=== PATIENT | male | born 1985 | race Caucasian/White ===

== ENCOUNTER → 2021-05-30 | Outpatient (CLI) | payer OTHER | LOC: EDBD → LAB 11:05 | PROVIDERS: ATTEND Otolaryngology | DX: Z01.818 Encounter for other preprocedural examination (principal); Z20.822 Contact with and (suspected) exposure to COVID-19; J34.2 Deviated nasal septum | CPT/HCPCS: U0003 ==

== ENCOUNTER → 2021-06-02 | Day surgery (SDC) | payer OTHER ==
[~2021-06-02] MED LIST: 0.9 % SODIUM CHLORIDE 10 ML VIAL. IJ ONE; 0.9 % SODIUM CHLORIDE 10 ML VIAL. ONE; ACETAMINOPHEN 325 MG TABLET PO PRN; ALBUTEROL SULFATE 2.5 MG/3 ML NEBU. NEB PRN; ATROPINE 0.5 MG/5 ML DISP.SYRIN. IV PRN; BACTERIOSTATIC SODIUM CHLORIDE 0.9% 30 ML VIAL. IJ ONE; DEXAMETHASONE SOD PHOS 20 MG/5 ML VIAL. ONE; GELATIN SPONGE SIZE 100. TP ONE; GELATIN SPONGE SIZE 12-7MM SPONGE. ONE; GLYCOPYRROLATE 1 MG/5 ML VIAL. ONE; IV RINGERS SOLUTION,LACTATED 1,000 ML IV SCH; KETOROLAC 30 MG/ML VIAL. ONE; LIDOCAINE 1% PF 30 ML VIAL. ONE; LIDOCAINE 1%/EPI 1:100,000 20 ML VIAL. IJ ONE; LIDOCAINE 1%/EPI 1:100,000 20 ML VIAL. ONE; MIDAZOLAM HCL PF 2 MG/2 ML VIAL. IV PRN; MIDAZOLAM HCL PF 2 MG/2 ML VIAL. ONE; NEOSTIGMINE 10 MG/10 ML VIAL. ONE; ONDANSETRON PF 4 MG/2 ML VIAL. IV PRN; ONDANSETRON PF 4 MG/2 ML VIAL. ONE; OXYMETAZOLINE 0.05% NASAL SPRAY 30ML BOTTLE. NS ONE; PHENOL ORAL SPRAY 177ML BOTTLE. MM PRN; PROPOFOL 10,000 MCG/ML (20ML) VIAL IV ONE; ROCURONIUM 50 MG/5 ML VIAL. ONE; SEVOFLURANE 61 TO 120 MINUTES. IH ONE; ceFAZolin SODIUM 2 GM in IV DEXTROSE 5% 50 ML IV ONE; diphenhydrAMINE 50 MG/ML VIAL IV PRN
--- NOTE | 2021-06-02 10:55 | OP ---
DATE OF SURGERY: 06/02/2021 PREOPERATIVE DIAGNOSIS: Deviated nasal septum. POSTOPERATIVE DIAGNOSES: Deviated nasal septum with inferior turbinate hypertrophy. PROCEDURES PERFORMED: Nasal septal reconstruction and radiofrequency reduction of the inferior nasal turbinates. ANESTHESIA: General anesthetic. ESTIMATED BLOOD LOSS: Approximately 15-20 mL. DESCRIPTION OF PROCEDURE: The patient was brought to the operating room and placed on the operating room table in a supine position and was given a general anesthetic. When his airway was intubated and safely in place, the table was then rotated 90 degrees. His nose had been previously decongested with topical application of Afrin was anteriorly examined. There was clearly displacement of the columella into the right side of the nasal passage. The septum was deviated into the left side and there was hypertrophy, particularly of the left inferior turbinate. The nasal mucous membrane and the nasal tissue around the columella was injected with 1% lidocaine with epinephrine, after which cottonoids containing adrenaline were placed in the nose and the face was then prepped and draped after sterile fashion. The cottonoids were then removed from the nose and a Benny incision was made in the midportion of the cartilaginous septum and dissection carried down beneath the mucoperichondrium and periosteum posteriorly elevating the mucous membrane and then a crossover incision was created and the twisted cartilaginous portion into the left side of the nose was isolated and removed. The crossover incision was then slightly expanded which gave mobility to the anterior portion of the nasal septum. Then, beginning at the anterior region of the Rocio and incision, dissection was carried out forward using scissors and the Guille dissector, dissecting forward then freeing up the twisted portion of the columella required some slight excision of cartilage, particularly on the base, which gave it more midline and then along the edge, which removed the prominent portion into a midline position. Careful manic curing of small tissue segments allowed this to be more stable and gave it a midline position. After which the nose was irrigated and the tissue was evaluated. The correction of the columella displacement had been accomplished and the deviation of the nasal septum had been corrected. The inferior turbinates were reduced by instilling normal saline into the inferior portion of the anterior third of the nasal turbinates on the left side and the right side, a probe from the radiofrequency Coblation unit was then inserted into the anterior soft tissue. Coblation energy was applied, observing the turbinates to contract at the conclusion. Then, each inferior turbinate was outfractured. The nose was then irrigated and without manipulation, the obtaining of a midline position was accomplished. Chromic suture was then used to close the elevated mucosal membranes. Soft tissue was reapproximated. Stabilization was provided to the septum and at the conclusion. Gelfoam was then placed in the nose for support. Procedure was completed. The patient was recovered from his anesthesia and taken to recovery room in stable condition. KIRK DR: Alejandrina TID: [id number]
[2021-06-02 11:13] VITALS: BP 110/72
== END | disposition home or self-care (01) ==
LOC: EDBD 07:35 → SURG 07:35
PROVIDERS: ATTEND Otolaryngology
DX: J34.3 Hypertrophy of nasal turbinates (principal); J34.2 Deviated nasal septum; Z79.899 Other long term (current) drug therapy; Z98.890 Other specified postprocedural states
CPT/HCPCS: 30520; 30802; J0171; J0696; J1100; J1885; J2250; J2405; J2704; J2710; J3010; J3490; J7120